=== PATIENT | female | born 1965 | race Caucasian/White ===

== ENCOUNTER → 2021-09-15 | Outpatient (CLI) | payer BC ==
[~2021-09-15] MED LIST: ACET1TAB43 PO; CALC-656 PO; ERGO400C PO; FLUO40CA PO; IBUP-1773 PO; MULT1CAP27 PO
--- NOTE | 2021-09-15 18:24 | Diagnostic Imaging Report ---
PROCEDURE: US non-OB pelvis comp/trans. TECHNIQUE: Multiple realtime grayscale images were obtained of the pelvis in various projections, endovaginally. Transabdominal imaging was also performed. INDICATION: Pelvic pain and postmenopausal bleeding. FINDINGS: The anteverted uterus measures 5.0 x 2.8 x 4.0 cm and demonstrates heterogeneous echogenicity with a focal 1.3 x 0.9 x 1.4 cm hypoechoic region which could represent fibroid. There is a separate 1 cm uterine nodule which may also be on the basis of fibroid. The endometrial stripe is difficult to visualize with certainty. There may be a small amount of endometrial fluid, possibly blood. Note is made of simple appearing nabothian cyst reaching 0.7 cm in size. Right ovary could not be visualized. Left ovary has internal blood flow without evidence of mass. IMPRESSION: Heterogeneous echogenicity of relatively small uterus may be related to fibroid change although clinical correlation is recommended. There does appear to be small amount of endometrial fluid which may represent blood. If warranted, endometrial biopsy may be useful for further assessment. Dictated by: Dictated on workstation # [id number]
== END ==
LOC: RAD 15:15
PROVIDERS: ATTEND Nurse Practitioner Family
DX: N95.0 Postmenopausal bleeding (principal)
CPT/HCPCS: 76830; 76856

== ENCOUNTER → 2021-11-22 | Outpatient (CLI) | payer BC ==
[~2021-11-22] VITALS: Ht 162.6 cm; Wt 47.3 kg
== END | disposition home or self-care (01) ==
LOC: PREOP 05:31
PROVIDERS: ATTEND Obstetrics & Gynecology
DX: Z01.818 Encounter for other preprocedural examination (principal)

== ENCOUNTER → 2021-11-29 | Day surgery (SDC) | payer BC ==
[2021-11-29] VITALS (11 sets, daily range): BP systolic 129–161; BP diastolic 69–92
[~2021-11-29] VITALS: Ht 162.6 cm; Wt 47.3 kg
[~2021-11-29] MED LIST changes: +ACET-2267 PO; +ACHD5005 PO; +BUPIVACAINE 0.25% 10 ML (SENSORCAINE) VIAL ONE; +CELE-63 PO; +D5 LR IV SOLUTION 1,000 ML IV SCH; +HYDR200T78 PO; +HYDROcodone/APAP 5 MG/325 MG (LORTAB) TAB ONE; +HYDROcodone/APAP 5 MG/325 MG (LORTAB) TAB PO PRN; +IBUP-2185 PO; +KETOROLAC 30 MG/ML VIAL IVP ONE; +KETOROLAC 30 MG/ML VIAL ONE; +LACT1CAP57 PO; +LACTATED RINGERS 1,000 ML IV PRN; +LIDOCAINE PF 2% 5 ML (XYLOCAINE) VIAL ONE; +MIDAZOLAM 2 MG/2 ML (VERSED) VIAL ONE; +MULT-1136 PO; +ONDANSETRON 4 MG/2 ML (SDV) Z0FRAN IVP PRN; +ONDANSETRON 4 MG/2 ML (SDV) Z0FRAN ONE; +TOFA5TAB PO; +fentaNYL INJ 100 MCG/2 ML AMP ONE; +proPOfol 200 MG/20 ML (DIPRIVAN) VIAL IV ONE
[2021-11-29 08:40] LABS: BASOPHILS % (AUTO) 1 % (0-10); EOSINOPHILS % (AUTO) 0 % (0-10); HEMATOCRIT 34 % (35-52); HEMOGLOBIN 11.4 g/dL (11.5-16.0); LYMPHOCYTES # (AUTO) 0.9 10^3/uL (1.0-4.0); LYMPHOCYTES % (AUTO) 28 % (12-44); MEAN CORPUSCULAR HEMOGLOBIN 33 pg (25-34); MEAN CORPUSCULAR HGB CONC 34 g/dL (32-36); MEAN CORPUSCULAR VOLUME 98 fL (80-99); MEAN PLATELET VOLUME 9.6 fL (9.0-12.2); MONOCYTES # (AUTO) 0.4 10^3/uL (0.0-1.0); MONOCYTES % (AUTO) 11 % (0-12); NEUTROPHILS % (AUTO) 61 % (42-75); PLATELET COUNT 192 10^3/uL (130-400); WHITE BLOOD COUNT 3.2 10^3/uL (4.3-11.0)
--- NOTE | 2021-11-29 09:57 | Discharge Inst-Women's Service ---
Discharge Inst-Women's Serv Depart Medication/Instructions New, Converted or Re-Newed RX: Transmitted to Pharmacy Problems Reviewed?: Yes Consults/Follow Up Additional Follow Up: Yes Orders/Referrals Dr. Saleh in 2 weeks Activity Activity: Activity as Tolerated Driving Instructions: You May Drive NO SMOKING: NO SMOKING Diet Discharge Diet: No Restrictions Symptoms to Report to : Bleeding Excessive, Pain Increased, Fever Over 101 Degrees F, Vaginal Bleeding Increase, Questions/Concerns For Any Problems or Questions: Contact Your Physician CASSANDRA SALEH DO Nov 29, 2021 09:57
--- NOTE | 2021-11-29 10:43 | Anesthesia-General Post-Op ---
General Patient Condition Mental Status/LOC: Same as Preop Cardiovascular: Satisfactory Nausea/Vomiting: Absent Respiratory: Satisfactory Pain: Controlled Complications: Absent Post Op Complications Complications None Follow Up Care/Instructions Patient Instructions None needed. Anesthesia/Patient Condition Patient Condition Patient is doing well, no complaints, stable vital signs, no apparent adverse anesthesia problems. No complications reported per nursing. JAMAR DOUGLAS CRNA Nov 29, 2021 10:43
--- NOTE | 2021-11-29 18:57 | OPERATIVE REPORT ---
DATE OF SERVICE: PREOPERATIVE DIAGNOSIS: A 56-year-old female with postmenopausal bleeding. POSTOPERATIVE DIAGNOSIS: A 56-year-old female with postmenopausal bleeding. PROCEDURE: D and C. SURGEON: Cassandra Saleh DO ANESTHESIA: LMA general. ESTIMATED BLOOD LOSS: Minimal. URINE OUTPUT: 50 mL drained at start of procedure. FLUIDS: 800 mL lactated Ringer's solution. FINDINGS: A grossly normal appearing external female genitalia, postmenopausal and very small uterus. SPECIMEN SENT: Endometrial curettings. INDICATIONS FOR PROCEDURE: This 56-year-old female is a patient who has consulted my office from Dr. Almaguer in [place] for postmenopausal bleeding. I discussed with the patient the need for endometrial sampling in her postmenopausal bleeding. The patient to confirm no signs of neoplasm or malignancy. The patient was agreeable to do this. I discussed with her D and C versus endometrial biopsy. She wished to proceed with D and C. Risks of the procedure were discussed with the patient in detail. After all her questions were answered, consent was obtained with her in the preoperative area and the patient was taken to the operating room. OPERATIVE REPORT IN DETAIL: Once in the operating room, anesthesia was found to be adequate. She was placed in the dorsal lithotomy position, prepped and draped in normal sterile fashion. Timeout was performed. Weighted speculum was inserted to the patient's vagina. Right angle retractor was used to visualize the cervix, which was grasped at 12 o'clock position using a single tooth tenaculum. I then performed paracervical block at 3 and 9 o'clock positions on the cervix. Care was taken to aspirate for injecting 10 mL of 0.25% Marcaine, used 5 mL injected into each site. I then gently sound the uterine cavity, depth was found to be approximately 5 to 6 cm. I then gently dilated the cervix using Hanks dilators to allow a curettage to pass through the cervix. Once this was done, I collected endometrial curettings, which there was a scant amount of endometrial tissue collected with endometrial curettings. It was sent as endometrial curettings. I then removed all the instruments from the patient's vagina. The patient tolerated the procedure well and sent to recovery area in stable condition. Lap and sponge counts were correct at the end of the procedure. Instrument counts correct as well. Job ID: [id number] DocumentID: [id number] Dictated Date: 11/29/2021 10:35:56 Plant Control Operator Date: 11/29/2021 18:57:15 Dictated By: CASSANDRA SALEH DO
== END | disposition home or self-care (01) ==
LOC: SDC 07:56
PROVIDERS: ATTEND Obstetrics & Gynecology
DX: N85.8 Other specified noninflammatory disorders of uterus (principal)
CPT/HCPCS: 36415; 85025; 86850; 86900; 86901; 87081

== ENCOUNTER → 2022-06-02 | Outpatient (CLI) | payer BC ==
[~2022-06-02] MED LIST changes: -BUPIVACAINE 0.25% 10 ML (SENSORCAINE) VIAL ONE; -D5 LR IV SOLUTION 1,000 ML IV SCH; -HYDROcodone/APAP 5 MG/325 MG (LORTAB) TAB ONE; -HYDROcodone/APAP 5 MG/325 MG (LORTAB) TAB PO PRN; -KETOROLAC 30 MG/ML VIAL IVP ONE; -KETOROLAC 30 MG/ML VIAL ONE; -LACTATED RINGERS 1,000 ML IV PRN; -LIDOCAINE PF 2% 5 ML (XYLOCAINE) VIAL ONE; -MIDAZOLAM 2 MG/2 ML (VERSED) VIAL ONE; -ONDANSETRON 4 MG/2 ML (SDV) Z0FRAN IVP PRN; -ONDANSETRON 4 MG/2 ML (SDV) Z0FRAN ONE; -fentaNYL INJ 100 MCG/2 ML AMP ONE; -proPOfol 200 MG/20 ML (DIPRIVAN) VIAL IV ONE
--- NOTE | 2022-06-02 18:17 | Diagnostic Imaging Report ---
PROCEDURE: US non-OB pelvis comp/trans. TECHNIQUE: Multiple real-time grayscale images were obtained of the pelvis in various projections endovaginally. Transabdominal imaging was also performed. INDICATION: Postmenopausal bleeding. COMPARISON: 09/15/2021. FINDINGS: The uterus measures 5.5 x 2.7 x 3.1 cm. The uterus is diffusely heterogeneous throughout. A couple of ovoid hypoechoic masses are identified within the uterus. The largest measures 1.8 x 1.9 x 1.3 cm within the posterior aspect of the uterine body. The endometrium is difficult to visualize. The endometrium is not abnormally thickened, though is not well visualized. The right ovary is unable to be visualized secondary to overlying bowel gas. The left ovary measures 1.6 x 1.0 cm and is unremarkable. Vascular flow is seen within the left ovary. No significant free fluid. IMPRESSION: Couple of ovoid hypoechoic masses within the uterus, favored to relate to uterine fibroids. Ill-defined though not abnormally thickened endometrial stripe. This could relate to prior ablation or potentially atrophy. Dictated by: Dictated on workstation # [id number]
== END ==
LOC: RAD 11:40
PROVIDERS: ATTEND Nurse Practitioner Women's Health
DX: N85.8 Other specified noninflammatory disorders of uterus (principal); Z78.0 Asymptomatic menopausal state
CPT/HCPCS: 76830; 76856